=== PATIENT | female | born 1985 | race Caucasian/White ===

== ENCOUNTER 2018-09-21 14:07 | Emergency (ER) | payer OTHER ==
[2018-09-21] MEDS ORDERED: KETOROLAC TROMETHAMINE INJ/PF 30 MG/1 ML SDV IM ONE (15:37)
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
[2018-09-21 16:59] VITALS: BP 133/109
== END 2018-09-21 17:09 | disposition home or self-care (01) ==
LOC: ER 14:07
DX: M54.2 Cervicalgia (principal); M54.6 Pain in thoracic spine; V49.40XA Driver injured in collision with unspecified motor vehicles in traffic accident, initial encounter; I10 Essential (primary) hypertension; J45.909 Unspecified asthma, uncomplicated
CPT/HCPCS: 99284; 96372; 72110; 72070; 72125; J1885